=== PATIENT | male | born 1990 | race Caucasian/White ===

== ENCOUNTER 2021-04-11 11:00 | Emergency (ER) | payer OTHER ==
[2021-04-11 11:13] VITALS: BP 132/85; PULSE 76; TEMP 98; BMI 28.7
== END 2021-04-11 12:03 | disposition home or self-care (01) ==
LOC: JERFT 11:00
DX: R19.7 Diarrhea, unspecified (principal)
CPT/HCPCS: 99281-25

== ENCOUNTER 2021-05-09 17:39 | Emergency (ER) | payer OTHER ==
[2021-05-09 18:03] VITALS: BP 132/95; PULSE 95; TEMP 97.9; BMI 28.7
[2021-05-09] MEDS ORDERED: PANTOPRAZOLE SODIUM 40 MG VIAL IVPUSH ONE (19:49)
[2021-05-09] MEDS ORDERED: DICYCLOMINE HCL 10 MG/5 ML PO ONE (19:49)
[2021-05-09] MEDS ORDERED: DICYCLOMINE HCL 10 MG CAPSULE ONE (20:11)
[2021-05-09] MEDS ORDERED: PANTOPRAZOLE SODIUM 40 MG/100 ML BAG IVPB ONE (20:12)
[2021-05-09 21:39] LABS: BASO % 0.5 % (0-2.0); EOS % 2.8 % (0-4.5); HEMOGLOBIN 14.9 GM/dL (11.7-16.9); LYMPH % 43.3 % (8-40); MCH 31.8 pg (25.7-33.7); MCHC 34.6 g/dl (32.0-35.9); MEAN CELL VOLUME 91.8 fl (80-96); MEAN PLT VOLUME 7.8 fl (7.5-11.1); MONO % 8.3 % (3.8-10.2); NEUT % 45.1 % (42.8-82.8); PLATELET COUNT 339 10^3/uL (134-434); RBC 4.69 M/mm3 (4.00-5.60); RDW 13.3 % (11.9-15.9); URINE APPEARANCE CLEAR; URINE BILIRUBIN NEGATIVE (NEGATIVE); URINE COLOR YELLOW; URINE GLUCOSE (UA) NEGATIVE (NEGATIVE); URINE KETONE TRACE (NEGATIVE); URINE LEUK ESTERASE NEGATIVE (NEGATIVE); URINE NITRITE NEGATIVE (NEGATIVE); URINE PROTEIN NEGATIVE (NEGATIVE); WHITE BLOOD COUNT 5.5 K/mm3 (4.0-10.0)
[2021-05-09 22:12] LABS: CALCIUM 9.4 mg/dL (8.5-10.1)
[2021-05-09] MEDS ORDERED: SODIUM CHLORIDE 0.9% 500 ML INFUS.BAG IV ONE (22:14)
[2021-05-09 22:16] LABS: CREATININE 1.1 mg/dL (0.55-1.3)
[2021-05-09 22:17] LABS: BILIRUBIN,TOTAL 0.7 mg/dL (0.2-1); TOT PROT 7.3 g/dl (6.4-8.2)
== END 2021-05-09 23:14 | disposition home or self-care (01) ==
LOC: JER 17:39
PROC: 3E033GC Introduction of Other Therapeutic Substance into Peripheral Vein, Percutaneous Approach (ICD-10-PCS; principal; 2021-05-09)
DX: R19.7 Diarrhea, unspecified (principal)
CPT/HCPCS: 36415; 80053; 81003; 83690; 85025; 99284-25

== ENCOUNTER 2021-06-01 12:12 | Emergency (ER) | payer OTHER ==
[2021-06-01 12:22] VITALS: BP 128/84; PULSE 85; TEMP 97.6; BMI 28.7
[2021-06-01] MEDS ORDERED: KETOROLAC TROMETHAMINE 30 MG/1 ML VIAL IVPUSH ONE (13:13)
[2021-06-01] MEDS ORDERED: SODIUM CHLORIDE 0.9% 500 ML INFUS.BAG IV ONE (13:13)
[2021-06-01] MEDS ORDERED: FAMOTIDINE 20 MG/50 ML IVPB 20 MG/50 ML MG IVPB ONE (13:13)
[2021-06-01] MEDS ORDERED: KETOROLAC TROMETHAMINE 30 MG/1 ML VIAL ONE (13:30)
[2021-06-01] MEDS ORDERED: FAMOTIDINE 10 MG/ML VIAL IVPB ONE (13:46)
[2021-06-01 13:53] LABS: BASO % 1.5 % (0-2.0); EOS % 3.3 % (0-4.5); HEMATOCRIT 45.6 % (35.4-49); HEMOGLOBIN 15.7 GM/dL (11.7-16.9); LYMPH % 45.2 % (8-40); MCH 31.5 pg (25.7-33.7); MCHC 34.4 g/dl (32.0-35.9); MEAN CELL VOLUME 91.8 fl (80-96); MEAN PLT VOLUME 7.5 fl (7.5-11.1); MONO % 9.6 % (3.8-10.2); NEUT % 40.4 % (42.8-82.8); PLATELET COUNT 336 10^3/uL (134-434); RBC 4.97 M/mm3 (4.00-5.60); RDW 13.2 % (11.9-15.9); WHITE BLOOD COUNT 4.5 K/mm3 (4.0-10.0)
[2021-06-01 14:11] LABS: BLOOD UREA NITROGEN 17.6 mg/dL (7-18); CALCIUM 9.7 mg/dL (8.5-10.1)
[2021-06-01 14:12] LABS: ALBUMIN 4.2 g/dl (3.4-5.0)
[2021-06-01 14:15] LABS: CREATININE 0.9 mg/dL (0.55-1.3)
[2021-06-01 14:16] LABS: BILIRUBIN,TOTAL 0.4 mg/dL (0.2-1); TOT PROT 7.9 g/dl (6.4-8.2)
== END 2021-06-01 16:13 | disposition home or self-care (01) ==
LOC: JER 12:12
PROC: 3E033GC Introduction of Other Therapeutic Substance into Peripheral Vein, Percutaneous Approach (ICD-10-PCS; principal; 2021-06-01)
PROC: 3E0333Z Introduction of Anti-inflammatory into Peripheral Vein, Percutaneous Approach (ICD-10-PCS; 2021-06-01)
DX: R10.84 Generalized abdominal pain (principal); R19.7 Diarrhea, unspecified
CPT/HCPCS: 36415; 74177-TC; 80053; 85025; 99285-25; Q9967